=== PATIENT | male | born 1950 | race Caucasian/White ===

== ENCOUNTER → 2016-10-07 | Outpatient (REF) | payer MEDICARE, OTHER ==
[2016-10-07 17:55] LABS: ALBUMIN 3.8 GM/DL (3.2-5.2); ALBUMIN/GLOBULIN RATIO 1.19 (1.00-1.93); ALKALINE PHOSPHATASE 72 U/L (45-117); ALT/SGPT 28 U/L (12-78); ANION GAP 10 MEQ/L (8-16); AST/SGOT 11 U/L (15-37); BILIRUBIN,TOTAL 0.4 MG/DL (0.2-1.0); BLOOD UREA NITROGEN 19 MG/DL (7-18); CALCIUM LEVEL 8.5 MG/DL (8.8-10.2); CARBON DIOXIDE LEVEL 25 MEQ/L (21-32); CHLORIDE LEVEL 106 MEQ/L (98-107); CHOLESTEROL LEVEL 215 MG/DL (<200); CREATININE FOR GFR 1.05 MG/DL (0.70-1.30); GLOMERULAR FILTRATION RATE > 60.0 (>49); GLUCOSE, FASTING 111 MG/DL (80-110); POTASSIUM SERUM 4.5 MEQ/L (3.5-5.1); SODIUM LEVEL 141 MEQ/L (136-145); TRIGLYCERIDES LEVEL 99 MG/DL (<150); URIC ACID 8.3 MG/DL (3.5-7.2)
== END ==
LOC: M SFHCCLAY 08:00
PROVIDERS: ATTEND Nurse Practitioner
DX: I10 Essential (primary) hypertension (principal); R97.20 Elevated prostate specific antigen [PSA]
CPT/HCPCS: 80053; 80061; 84550; G0103; G0463

== ENCOUNTER → 2016-10-20 | Outpatient (REF) | payer MEDICARE, OTHER | LOC: M SMT 17:13 | PROVIDERS: ATTEND Nurse Practitioner Women's Health | DX: R97.20 Elevated prostate specific antigen [PSA] (principal); Z79.82 Long term (current) use of aspirin; Z79.899 Other long term (current) drug therapy | CPT/HCPCS: 81001; 87086; G0463 ==

== ENCOUNTER → 2016-11-17 | Outpatient (REF) | payer MEDICARE, OTHER ==
[2016-11-17 12:00] LABS: ANION GAP 10 MEQ/L (8-16); BLOOD UREA NITROGEN 23 MG/DL (7-18); CALCIUM LEVEL 8.7 MG/DL (8.8-10.2); CARBON DIOXIDE LEVEL 25 MEQ/L (21-32); CHLORIDE LEVEL 107 MEQ/L (98-107); CREATININE FOR GFR 1.19 MG/DL (0.70-1.30); GLOMERULAR FILTRATION RATE > 60.0 (>49); GLUCOSE, FASTING 110 MG/DL (80-110); POTASSIUM SERUM 4.3 MEQ/L (3.5-5.1); SODIUM LEVEL 142 MEQ/L (136-145)
== END ==
LOC: M SFHCCLAY 08:12
PROVIDERS: ATTEND Nurse Practitioner
DX: I10 Essential (primary) hypertension (principal)

== ENCOUNTER → 2016-12-10 | Outpatient (REF) | payer MEDICARE, OTHER | LOC: M SFHCCLAY 07:33 | PROVIDERS: ATTEND Nurse Practitioner | DX: M10.9 Gout, unspecified (principal) | CPT/HCPCS: 84550; G0463 ==

== ENCOUNTER → 2016-12-14 | Outpatient (CLI) | payer MEDICARE, BC, OTHER ==
[~2016-12-14] MED LIST: PROHANCE 279.3MG/ML 15ML VIAL (A9576) As Ordered ONE; PROHANCE 279.3MG/ML 5ML VIAL (A9576) As Ordered ONE
--- NOTE | 2016-12-18 09:35 | REP ---
Multiparametric prostate MRI without and with IV gadolinium: History: Elevated PSA. Comparisons: No comparison. TECHNIQUE: Using a phased array surface coil, small field of view imaging was acquired using T2-weighted scans in the axial, coronal, and sagittal imaging planes. Small field of view diffusion-weighted sequences are acquired. Small field of view axial T1-weighted scans are acquired dynamically after the intravenous administration of 21 mL of ProHance. Prostate MRI findings: There is no evidence of skeletal metastasis on T1 pre- or postcontrast images. No pelvic adenopathy is seen. Heterogeneous nodular enlargement of the prostate consistent with BPH is seen. Prostate glandular dimensions are 6.0 x 5.5 x 6.3 cm for a calculated prostate glandular volume of 76.51 ml. There are three notable areas identified within the prostate gland. These are identified, highlighted and transmitted for consideration of transrectal ultrasound MR fusion directed needle biopsy. Lesion #1 is in the left base lateral peripheral zone, 1.8 ml in volume with diameters of 2.3 x 1.0 x 1.0 cm. This is a discrete homogeneous low signal intensity focus confined to the prostate with no observable reduction in ADC and a type 3 enhancement curve. Clinically significant cancer is likely to be present. Lesion #2 is located in the left base anterior transition zone with a 0.37 ml volume and dimensions of 1.0 x 0.6 x 0.7 cm. It is a discrete homogeneous low signal intensity T2 lesion confined to the prostate with no observable reduction in ADC and a type 3 enhancement curve. Clinically significant cancer is felt to be equivocal. Lesion #3 is in the left apical transition zone with a volume of 1.8 ml and dimensions of 1.7 x 1.1 x 1.4 cm. It has an intermediate T2 appearance with no reduction in ADC and a type 3 enhancement curve. Clinically significant cancer is felt to be equivocal. Impression: Transrectal multiparametric prostate MRI study as above. Three potential lesions identified and submitted for consideration of MR ultrasound fusion directed needle biopsy. No evidence of extraprostatic disease. Enlargement and BPH changes as above. Signed by Alvino Newman MD 12/18/2016 03:07 P
== END ==
LOC: M RAD 12:42
PROVIDERS: ATTEND Urology
DX: R97.20 Elevated prostate specific antigen [PSA] (principal); N42.89 Other specified disorders of prostate
CPT/HCPCS: 72197; A9576